=== PATIENT | male | born 1995 | race Caucasian/White ===

== ENCOUNTER → 2023-07-02 16:25 | Outpatient (CLI) | payer OTHER, SELFPAY ==
--- NOTE | 2023-07-02 16:29 | DI.MRI.S_ITS ---
PROCEDURE: MR ANKLE LT WO CON INDICATIONS: INJURY TO CALCANEUS LEFT ANKLE TECHNIQUE: Noncontrast sagittal T1 spin echo and T2 fast spin echo with fat saturation, axial proton density fast spin echo and T2 fast spin echo with fat saturation, coronal T1 spin echo and T2 fast spin echo with fat saturation through the ankle/hindfoot. COMPARISON: None. FINDINGS: Image quality: Excellent. Bones and joints: No bone marrow contusions or fractures. No hindfoot coalitions. No osteochondral injuries of the talar dome. Small plantar and dorsal calcaneal enthesophytes are seen. No pathologic joint effusions. Medial structures: The posterior tibialis, flexor digitorum longus, and flexor hallucis longus tendons are intact. The posterior tibial neurovascular bundle appears normal within the tarsal tunnel, without extrinsic mass effect. The deep layer (anterior and posterior tibiotalar ligaments) and superficial layer (tibionavicular, tibiospring, and tibiocalcaneal ligaments) of the deltoid ligament appear normal. The spring ligament components (superomedial calcaneonavicular, medioplantar oblique calcaneonavicular, and inferoplantar longitudinal ligaments) are intact. Lateral structures: The anterior talofibular, calcaneofibular, and posterior talofibular ligaments appear mildly thickened with intrasubstance T2 hyperintense signal. More superiorly, the anterior and posterior tibiofibular ligaments appear intact, as is the intermalleolar ligament. The tibiofibular syndesmosis is normal in width at 2 mm or less. The peroneus longus and brevis tendons demonstrate normal location and morphology. Adjacent bony peroneal tubercle and retrotrochlear prominence are normal in size. The sinus tarsi demonstrates normal fatty signal, without edema, fibrosis, or cyst formation. Visualized sinus tarsi components (cervical ligament, interosseous talocalcaneal ligament, roots of the inferior extensor retinaculum) appear normal. Anterior structures: The tibialis anterior, extensor hallucis longus, and extensor digitorum longus tendons appear intact. The dorsal talonavicular ligament appears intact. Posterior and plantar structures: There is thickened distal Achilles tendon at its posterior calcaneal insertion with subtle intrasubstance T2 hyperintense signal. Medial and lateral bands of the plantar fascia are of normal thickness. No abductor digiti quinti muscle atrophy to suggest Uribe neuropathy. IMPRESSION: 1. Distal Achilles tendinosis at its posterior calcaneal insertion. No Achilles tendon rupture. 2. Low-grade sprain involving anterior talofibular ligament, calcaneofibular ligament and posterior talofibular ligament. No full-thickness ankle ligament rupture. 3. No marrow edema. No fracture or dislocation. No osteochondral injuries of talar dome. Dictated by: Shane Cooper M.D. on 07/03/2023 at 8:45 Approved by: Shane Cooper M.D. on 07/03/2023 at 9:04
== END ==
LOC: MRI 16:27
PROVIDERS: Referring Provider Podiatrist; Visit Provider Podiatrist
DX: S93.402A Sprain of unspecified ligament of left ankle, initial encounter (principal)
CPT/HCPCS: 73721